=== PATIENT | female | born 1980 | race Hispanic/Latino ===

== ENCOUNTER 2016-05-04 09:30 | Observation (INO) | payer OTHER ==
[~2016-05-04] VITALS: Ht 170.2 cm; Wt 157.6 kg
[~2016-05-04 09:30] MED LIST: ACID CONTROL150 MG PO; CARAFATE100 MG/ML PO; EXCEDRIN EXTRA1 EACH PO; FLEXERIL10 MG PO; HYDROCODON-ACE1 EAC7 PO; IBUPROFEN200 M1 PO; IBUPROFEN800 MG PO; IRON18 MG PO; LISINOPRIL10 MG PO; MEDROL DOSEPAK4 MG PO; NAPROSYN500 MG PO; NORCO 5/3251 TABLET PO; PERCOCET 5/31 TABLET PO; PREDNISONE10 MG PO; PREDNISONE20 MG PO; SPRINTEC1 EACH PO; TRAMADOL HCL50 MG PO; VITAMIN D-32000 UNI1 PO; VITAMIN D50000 UNI4 PO
[2016-05-04 09:54] LABS: HEMATOCRIT 35.6 % (36.0-46.0); MCHC 32.3 G/DL (30.0-36.0); MCV 80.4 FL (83-99); MEAN PLAT.VOLUME 12.7 uM^3 (9.5-12.4); PLATELET COUNT 192 K/uL (156-360); RBC DIS.WIDTH-CV 14.1 % (11.8-14.6); RBC DIS.WIDTH-SD 40.2 % (39-53); RED BLOOD COUNT 4.43 M/uL (3.80-5.20); WHITE BLOOD COUNT 7.3 K/uL (4.1-10.2)
[2016-05-04 10:02] LABS: CHLORIDE 107 mEq/L (99-109); POTASSIUM 4.2 mEq/L (3.7-5.4)
[2016-05-04 10:03] LABS: SODIUM 135 mEq/L (136-147)
[2016-05-04 10:05] LABS: GLUCOSE 112 mg/dL (70-99)
[2016-05-04 10:06] LABS: ANION GAP 7 MEQ/L (2-14)
[2016-05-04 10:07] LABS: TOTAL BILIRUBIN 0.3 mg/dL (0.0-1.0)
[2016-05-04 10:08] LABS: ALKALINE PHOSPHATASE 77 IU/L (3-129); GFR ESTIMATE (CALCULATED) > 59 mL/min/
[2016-05-04 10:10] LABS: UREA NITROGEN (BUN) 19 mg/dL (9-23)
[2016-05-04 10:17] LABS: QUANTITATIVE HCG < 4.0 MIU/ML
[2016-05-04 12:39] LABS: ADD MIUA? NO; BILIRUBIN NEGATIVE; BLOOD NEGATIVE; COLOR YELLOW ((YELLOW)); GLUCOSE (STRIP) NEGATIVE; KETONES 5; LEUKOCYTES NEGATIVE; NITRITE NEGATIVE; PROTEIN (STRIP) NEGATIVE; SPECIFIC GRAVITY 1.023 (1.000-1.030); UCUL ADDED? NO; UROBILINOGEN 0.2 MG/DL (0.2-1.0)
[2016-05-04 14:09] VITALS: BP 135/89
[2016-05-04 16:30] VITALS: BP 145/66
[2016-05-04 20:00] VITALS: BP 115/54
[2016-05-05] VITALS: BP 111/57
[2016-05-05 05:00] VITALS: BP 116/58
[2016-05-05 11:06] VITALS: BP 120/74
== END 2016-05-05 14:28 | disposition home or self-care (01) ==
LOC: EME 09:30 → EDOF 13:19 → 5WEST 13:19 → EDOF 13:19 → 5WEST 13:52
DX: G43.909 Migraine, unspecified, not intractable, without status migrainosus (principal); R42 Dizziness and giddiness; J45.909 Unspecified asthma, uncomplicated; D64.9 Anemia, unspecified
CPT/HCPCS: 70450; 80053; 81003; 84702; 85027; 93005; 99281; 99285; G0378; J1200; J1885; J2060; J2405; J2765; J7030

== ENCOUNTER 2016-07-17 07:17 | Day surgery (SDC) | payer OTHER ==
[~2016-07-17] VITALS: Ht 167.6 cm; Wt 151.9 kg
[2016-07-17 07:47] VITALS: BP 127/65
[2016-07-17] MEDS ORDERED: HYDROCODON-ACE1 EAC7 PO (10:27)
[2016-07-17] MEDS ORDERED: IBUPROFEN800 MG PO (10:27)
[2016-07-17 11:08] VITALS: BP 137/82
[2016-07-17 12:08] VITALS: BP 149/83
== END 2016-07-17 12:20 | disposition home or self-care (01) ==
LOC: SDC 07:17
DX: N93.8 Other specified abnormal uterine and vaginal bleeding (principal); N93.0 Postcoital and contact bleeding; D64.9 Anemia, unspecified; I10 Essential (primary) hypertension; R00.1 Bradycardia, unspecified; J45.909 Unspecified asthma, uncomplicated; E66.01 Morbid (severe) obesity due to excess calories; Z68.43 Body mass index [BMI] 50.0-59.9, adult; Z83.3 Family history of diabetes mellitus; Z82.49 Family history of ischemic heart disease and other diseases of the circulatory system
CPT/HCPCS: 88305; J0131; J0330; J1100; J1885; J2250; J2405; J2765; J3010

== ENCOUNTER 2016-10-05 01:26 | Emergency (ER) | payer OTHER ==
[~2016-10-05] VITALS: Ht 167.6 cm; Wt 149.3 kg
[2016-10-05] MEDS ORDERED: LIDOCAINE HC PR (02:01)
[2016-10-05 02:23] VITALS: BP 137/100
== END 2016-10-05 02:24 | disposition home or self-care (01) ==
LOC: EME 01:26
DX: K64.4 Residual hemorrhoidal skin tags (principal); Z88.1 Allergy status to other antibiotic agents; Z91.013 Allergy to seafood
CPT/HCPCS: 99281; 99283

== ENCOUNTER 2016-10-23 05:40 | Day surgery (SDC) | payer OTHER ==
[~2016-10-23] VITALS: Ht 167.6 cm; Wt 148.2 kg
[~2016-10-23 05:40] MED LIST changes: +IRON325 M1 PO; +LIDOCAINE HC PR
[2016-10-23 05:55] VITALS: BP 137/94
[2016-10-23 13:26] VITALS: BP 109/61
[2016-10-23 19:18] VITALS: BP 137/65
[2016-10-23 23:48] VITALS: BP 113/49
[2016-10-24 03:48] VITALS: BP 98/57
[2016-10-24 06:29] LABS: EOSINOPHIL (%) 1.7 % (0-5); EOSINOPHIL COUNT 0.1 K/uL (0-0.3); HEMATOCRIT 30.1 % (36.0-46.0); IMMATURE GRANULOCYTE (%) 0.3 % (0.0-0.7); INSTRUMENT ABS NEUTROPHIL CT 3.9 K/uL; MCH 23.5 PG (29.0-34.0); MCHC 30.2 G/DL (30.0-36.0); MCV 77.6 FL (83-99); MEAN PLAT.VOLUME 12.2 uM^3 (9.5-12.4); MONOCYTE (%) 8.8 % (3-12); MONOCYTE COUNT 0.6 K/uL (0-0.8); NEUTROPHIL COUNT 3.9 K/uL (1.8-6.4); PLATELET COUNT 178 K/uL (156-360); RBC DIS.WIDTH-CV 15.2 % (11.8-14.6); RBC DIS.WIDTH-SD 42.6 % (39-53); RED BLOOD COUNT 3.88 M/uL (3.80-5.20); WHITE BLOOD COUNT 6.6 K/uL (4.1-10.2)
[2016-10-24 08:15] VITALS: BP 127/76
[2016-10-24] MEDS ORDERED: IBUPROFEN800 MG PO (09:50)
[2016-10-24] MEDS ORDERED: COLACE100 MG PO (09:50)
[2016-10-24] MEDS ORDERED: ENDOCET 5-3251 EACH PO (09:50)
== END 2016-10-24 12:15 | disposition home or self-care (01) ==
LOC: SDC 05:40 → 2SOUTH 11:18 → CANRESERV 11:21 → ENRESERV 11:21 → 2EAST 13:14 → SDC 16:08 → 2EAST 10-24 12:15
PROVIDERS: Obstetrics & Gynecology
DX: D25.9 Leiomyoma of uterus, unspecified (principal); N80.0 Endometriosis of uterus; N83.8 Other noninflammatory disorders of ovary, fallopian tube and broad ligament; E66.01 Morbid (severe) obesity due to excess calories; Z68.43 Body mass index [BMI] 50.0-59.9, adult
CPT/HCPCS: 85025; 88307; G0378; J0690; J1100; J1170; J1885; J2250; J2405; J2710; J3010; J7120

== ENCOUNTER 2016-10-26 19:32 | Emergency (ER) | payer OTHER ==
[~2016-10-26] VITALS: Ht 167.6 cm; Wt 150.5 kg
[~2016-10-26 19:32] MED LIST changes: +COLACE100 MG PO; +ENDOCET 5-3251 EACH PO
[2016-10-26 20:24] LABS: EOSINOPHIL (%) 2.4 % (0-5); EOSINOPHIL COUNT 0.1 K/uL (0-0.3); IMMATURE GRANULOCYTE (%) 0.2 % (0.0-0.7); INSTRUMENT ABS NEUTROPHIL CT 3.2 K/uL; MCH 23.7 PG (29.0-34.0); MCHC 31.3 G/DL (30.0-36.0); MCV 75.8 FL (83-99); MEAN PLAT.VOLUME 12.5 uM^3 (9.5-12.4); MONOCYTE (%) 9.4 % (3-12); MONOCYTE COUNT 0.6 K/uL (0-0.8); NEUTROPHIL COUNT 3.2 K/uL (1.8-6.4); PLATELET COUNT 191 K/uL (156-360); RBC DIS.WIDTH-CV 14.6 % (11.8-14.6); RED BLOOD COUNT 3.96 M/uL (3.80-5.20); WHITE BLOOD COUNT 5.9 K/uL (4.1-10.2)
[2016-10-26 20:35] LABS: ADD MIUA? YES; BILIRUBIN NEGATIVE; BLOOD MODERATE; COLOR STRAW ((YELLOW)); GLUCOSE (STRIP) NEGATIVE; KETONES NEGATIVE; LEUKOCYTES TRACE; NITRITE NEGATIVE; PROTEIN (STRIP) NEGATIVE; SPECIFIC GRAVITY 1.008 (1.000-1.030); UROBILINOGEN 0.2 MG/DL (0.2-1.0)
[2016-10-26 20:46] LABS: CHLORIDE 104 mEq/L (99-109); SODIUM 138 mEq/L (136-147)
[2016-10-26 20:48] LABS: GLUCOSE 97 mg/dL (70-99)
[2016-10-26 20:50] LABS: ANION GAP 9 MEQ/L (2-14); TOTAL BILIRUBIN 0.3 mg/dL (0.0-1.0)
[2016-10-26 20:52] LABS: ALKALINE PHOSPHATASE 75 IU/L (3-129); GFR ESTIMATE (CALCULATED) > 59 mL/min/
[2016-10-26 20:53] LABS: UREA NITROGEN (BUN) 11 mg/dL (9-23)
[2016-10-26 20:54] LABS: BACTERIA RARE /HPF; EPITHELIAL CELLS 1+ /HPF; MUCUS NONE SEEN /LPF; RED BLOOD CELLS 0-5 /HPF (0-5); WHITE BLOOD CELLS 0-5 /HPF (0-5)
[2016-10-26 20:55] LABS: LIPASE 17 U/L (1.0-51.0)
[2016-10-26 23:50] VITALS: BP 138/98
== END 2016-10-26 23:53 | disposition home or self-care (01) ==
LOC: EME 19:32
PROVIDERS: Physician Assistant
DX: R50.9 Fever, unspecified (principal); G89.18 Other acute postprocedural pain; R10.2 Pelvic and perineal pain; Z90.711 Acquired absence of uterus with remaining cervical stump; I10 Essential (primary) hypertension; J45.909 Unspecified asthma, uncomplicated
CPT/HCPCS: 71020; 74177; 80053; 81003; 83690; 85025; 87651 90; 99281; 99284; J2405; J3010; J7030